=== PATIENT | female | born 1970 | race African-American/Black ===

== ENCOUNTER 2019-06-12 23:07 | Emergency (ER) | payer BC, MEDICAID ==
[~2019-06-12] VITALS: Ht 167.6 cm; Wt 59.0 kg
[2019-06-12 23:15] VITALS: BP 102/60
[2019-06-12] MEDS ORDERED: Ketorolac 30mg Inj IM ONE (23:15)
[2019-06-12] MEDS ORDERED: HYDROcodone/Acetamin 7.5/325 tab ORAL ONE (23:15)
--- NOTE | 2019-06-12 23:15 | NUR ---
ED Nurse Note: Pt brought in by ambulance from home c/o bilateral foot pain 8/10 for several month, pt moaning and facial grimacing. VSS. PT is A&Ox4.
--- NOTE | 2019-06-12 23:24 | Emergency Room Report ---
History of Present Illness General Chief Complaint: Pain Source: Patient Present Illness HPI Disclaimer: Please note that this report is being documented using DRAGON technology. This can lead to erroneous entry secondary to incorrect interpretation by the dictating instrument. HPI: 48-year-old female presents for evaluation of bilateral foot pain. Patient states symptoms have been present intermittently for several years. She notes worsening pain over the plantar surface of the feet that radiates up the ankles and the shins bilaterally. States she walks a moderate amount but not excessively. No trauma reported. Pain is bilateral. Exacerbated by walking, relieved by rest. She has been seen at multiple hospitals for similar complaints. She was recently seen in emergency department is prescribed 600 mg tablets of ibuprofen. She has been taking 1 daily. Denies unilateral swelling , recent travel, exogenous steroid use, history of cancer, history of PE/DVT, immobilization, surgery or other changes in her health PMH: Denies PSH: section Allergies: Denies Social Hx: Denies drug or alcohol abuse Allergies: Coded Allergies: No Known Allergies (Unverified , 06/12/19) Patient History Last Menstrual Period: n/a Nursing Documentation-PMH Past Medical History: No Stated History Review of Systems All Other Systems: negative except mentioned in HPI Physical Exam Vital Signs Date Time Temp Pulse Resp B/P (MAP) Pulse Ox O2 Delivery O2 Flow Rate FiO2 06/12/19 23:05 98.1 79 18 102/60 (74) 98 Room Air General: Awake and alert, no acute distress HEENT: NC/AT. EOMI. Resp: Normal work of breathing Skin: Intact. No abrasions, laceration or rash over the exposed skin MSK: Normal tone and bulk. Moving all extremities. No obvious deformity. There is tenderness palpation over the plantar surfaces of both feet particularly over the calcaneus. No tenderness over the bones in the midfoot, anterior posterior malleoli. There is no evidence of joint deformity or instability in the ankle or knee. Calves are symmetrical in size. Soft compartments. Nontender. Patient is able to ambulate though is difficult due to pain Neuro: Awake and alert. Mentating appropriately. Sensation is intact over the dermatomes of the lower extremities bilaterally. Medical Decision Making Diagnostic Impression: Primary Impression: Foot pain Additional Impression: Plantar fascia syndrome ER Course 48-year-old female presents for evaluation of bilateral foot pain. Symptoms have been present intermittently for several years and there is no evidence of acute trauma or other sudden change in her health. She appears to be underdosing her ibuprofen. Appears to be consistent with a plantar fasciitis or other connective tissue irritation. Will give pain medication in the emergency department but do not see need for acute imaging at this time. No clinical evidence of DVT. Patient states she has no other medical history and denies risk factors. She can be discharged to follow-up with the clinic as an outpatient. Discussed reasons to return to the emergency department. She understands and agrees with the treatment plan. Last Vital Signs Date Time Temp Pulse Resp B/P (MAP) Pulse Ox O2 Delivery O2 Flow Rate FiO2 06/12/19 23:05 98.1 79 18 102/60 (74) 98 Room Air Disposition: HOME, SELF-CARE Condition: Stable Scripts Ibuprofen* (MOTRIN*) 600 Mg Tablet 600 MG ORAL Q8H PRN for For Pain, #30 TAB 0 Refills Prov: Myles Puente MD 06/12/19 Myles Puente MD Jun 12, 2019 23:23
[2019-06-12] MEDS ORDERED: IBUPROFEN600 MG ORAL (23:25)
[2019-06-13 01:00] VITALS: BP 110/68
--- NOTE | 2019-06-13 01:00 | NUR ---
ED Nurse Note: Pt resting in bed with eyes closed, non-labored breathing, no signs of distress, will continue to monitor.
[2019-06-13 03:00] VITALS: BP 110/68
--- NOTE | 2019-06-13 03:00 | NUR ---
ER DISCHARGE NOTE: Patient is cleared to be discharged per ERMD, pt is aox4, on room air, with stable vital signs. pt was given dc and prescription instructions, pt was able to verbalize understanding, pt id band removed. pt is able to ambulate with steady gait. pt took all belongings.
== END 2019-06-13 03:00 | disposition home or self-care (01) ==
LOC: EDBD 23:07 → EMR 23:30
DX: M72.2 Plantar fascial fibromatosis (principal); M79.672 Pain in left foot; M79.671 Pain in right foot
CPT/HCPCS: 96372; J1885; Z7502; 99283